=== PATIENT | male | born 1955 | race Caucasian/White ===

== ENCOUNTER 2021-10-14 09:25 | Emergency (ER) | payer OTHER, SELFPAY ==
[2021-10-14 09:40] VITALS: BP 146/91; PULSE 80; RESP 20; TEMP 36.3; O2SAT 99
--- NOTE | 2021-10-14 09:54 | ED.MALEGU ---
HPI - Male Genitourinary General Chief complaint: Urogenital-Male Stated complaint: BLOOD IN URINE Source: patient and RN notes reviewed Mode of arrival: ambulatory Limitations: no limitations History of Present Illness HPI Narrative: patient has a history of prostate cancer. Last night when he urinated it was brown. He did state that it was more difficult to urinate and seemed to take him some time to get started. Now he is not having any difficulty urinated he drink lot of fluids and he has urinated several times this morning. This morning he had some urination that was pink and now it is completely resolved. Comes in because he had the brown urination last night. No other symptoms no pain, dysuria urgency. No fever no chills. Complaint: other (hematuria) Onset (ago): hour(s) (12) Duration: now resolved Severity: mild Relieving factors: urination Exacerbating factors: none Associated symptoms: Reports denies other symptoms Related Data Home Medications Medication Instructions Recorded Confirmed losartan 100 mg PO DAILY 10/14/21 10/14/21 metoprolol succinate 25 mg PO DAILY 10/14/21 10/14/21 Allergies Allergy/AdvReac Type Severity Reaction Status Date / Time No Known Allergies Allergy Unknown Unverified 01/18/16 15:04 Review of Systems Review of Systems: All systems reviewed & are unremarkable except as noted in HPI and below PMFSH Past Medical History Medical History (Updated 10/14/21 @ 10:19 by Enzo March MD) Hypertension Prostate cancer Surgical History Surgical History (Updated 10/14/21 @ 09:56 by Enzo March MD) H/O prostatectomy S/P hernia repair Exam Const: General: healthy appearing, no acute distress and alert Orientation/consciousness: patient oriented x3 HENMT: Head: normal to inspection Eyes: Conjunctivae: conjunctivae normal Pupils: Equal, round and reactive pupils present EOM: EOMs intact bilaterally Neck: Neck: normal visual inspection Resp: Effort & Inspection: normal respiratory effort Auscultation: clear to auscultation bilaterally Cardio: Rate: regular rate Rhythm: regular rhythm GI: GI Palp: Yes Soft to palpation and No Tenderness to palpation present (GI) Auscultation: normal bowel sounds Back/Spine/Pelvis: Cervical Spine: cervical ROM normal Thoracic/Lumbar Spine: thoraco-lumbar ROM normal Skin: General skin exam: normal color Rashes: no rashes Neuro: General: patient oriented x3, moves all extremities, no meningeal signs and no focal motor deficits Cranial nerves: Yes CN's II-XII intact bilaterally Speech: normal speech Gait exam (Neuro): Normal gait present Extrem: General: normal to inspection and no clubbing, cyanosis or edema Psych: Appearance: grossly normal and well kempt Mental Status: mental status grossly normal Affect: normal affect Attitude: cooperative Thought content: Yes Normal thought content present Course Vital Signs Vital signs: Vital Signs Temperature 36.3 C L 10/14/21 09:40 Pulse Rate 80 10/14/21 09:40 Respiratory Rate 20 10/14/21 09:40 Blood Pressure 146/91 H 10/14/21 09:40 Pulse Oximetry 99 10/14/21 09:40 Temperature 36.3 C L 10/14/21 10:28 Pulse Rate 80 10/14/21 10:28 Respiratory Rate 20 10/14/21 10:28 Blood Pressure 146/91 H 10/14/21 10:28 Pulse Oximetry 99 10/14/21 10:28 MDM - Male Genitourinary Lab Data Attestation: I reviewed the patient's lab results. Labs: Lab Results 10/14/21 Range/Units 09:54 Urine Color Light yellow (Yellow) Urine Appearance Clear (Clear) Urine pH 5.5 (5.0-8.0) Ur Specific [place] <= 1.005 L (1.010-1.020) Urine Protein Negative (Negative) Urine Glucose (UA) Negative (Negative) Urine Ketones Negative (Negative) Ur Blood (Man) 3+ H (Negative) Urine Nitrate Negative (Negative) Urine Bilirubin Negative (Negative) Urine Urobilinogen 0.2 (0.2-1.0) mg/dL Leukocyte Esterase Rfl 1+ H (Negative
[2021-10-14 10:10] LABS: Add Urine Microscopic? YES; Appearance Urine Clear (Clear); Bilirubin Urine Negative (Negative); Blood Urine 3+ (Negative); Color Urine Light Yellow (Yellow); Glucose Urine UA Negative (Negative); Ketones Urine Negative (Negative); Leukocyte Esterase Ur 1+ LEU/UL (Negative); Nitrate Urine Negative (Negative); Protein Urine Negative (Negative); Specific Grav Ur <= 1.005 (1.010-1.020); Urobilinogen Urine 0.2 mg/dL (0.2-1.0); pH Urine 5.5 (5.0-8.0)
[2021-10-14 10:11] LABS: Bacteria Urine 1+ /hpf; Renal Epithelial Cells Urine Rare /hpf; Squamous Epithelial Cell Urine Rare /hpf (Few)
[2021-10-14 10:28] VITALS: BP 146/91; PULSE 80; RESP 20; TEMP 36.3; O2SAT 99
== END 2021-10-14 10:30 | disposition home or self-care (01) ==
PROVIDERS: Emergency Provider Emergency Medicine
DX: N39.0 Urinary tract infection, site not specified (principal)
CPT/HCPCS: 81001; 87077; 87086; 87088; 87186; 99283